=== PATIENT | male | born 1965 | race Caucasian/White ===

== ENCOUNTER 2022-01-30 01:01 | Emergency (ER) | payer BC, SELFPAY | END 2022-01-30 04:28 | disposition home or self-care (01) | LOC: ERS 01:01 | DX: I87.8 Other specified disorders of veins (principal); L03.115 Cellulitis of right lower limb; L03.116 Cellulitis of left lower limb; F17.210 Nicotine dependence, cigarettes, uncomplicated | CPT/HCPCS: 93970 ==